=== PATIENT | female | born 1960 | race Caucasian/White ===

== ENCOUNTER 2017-10-31 12:00 | Emergency (ER) | payer MEDICAID, MEDICARE ==
[~2017-10-31] VITALS: Ht 160 cm; Wt 96.6 kg
[~2017-10-31 12:00] MED LIST: BACTRIM DS TAB1 EAC1 ORAL; CLINDAMYCIN HC150 MG ORAL; GENTAK5 ML BOTH EYES; IBUPROFEN400 MG ORAL
--- NOTE | 2017-10-31 12:42 | Emergency Room Report ---
History of Present Illness General Chief Complaint: Lower Extremity Injury Source: Patient Present Illness HPI The patient is a 57-year-old female with a history of seizures and mental disability brought in by services host for leg pain. The patient states that this began 2 days ago for no known reason. The services host denies any injury or fall. She states that the patient does not want to go to her daily activities and is complaining of this pain. Pain is a 5/10 dull ache to both legs. Primarily to the back of the legs Worse with movement. She denies any numbness or tingling. She denies any other symptoms including nausea, vomiting, fever, chills, rash, shortness of breath, chest pain, calf pain Allergies: Coded Allergies: PENICILLINS (Verified Allergy, Unknown, 03/05/13) PHENYTOIN SODIUM (Verified Allergy, Unknown, 03/05/13) PHENYTOIN SODIUM EXTENDED (Verified Allergy, Unknown, 03/05/13) Patient History Past Medical History: see triage record Pertinent Family History: none Last Menstrual Period: na Now: No Reviewed Nursing Documentation: PMH: Agreed, PSxH: Agreed Nursing Documentation-PMH Past Medical History: No History, Except For Hx Asthma: Yes Hx COPD: No - HYPERCHOLESTEROLEMIA Hx Seizures: Yes Review of Systems All Other Systems: negative except mentioned in HPI Physical Exam Vital Signs Date Time Temp Pulse Resp B/P (MAP) Pulse Ox O2 Delivery O2 Flow Rate FiO2 10/31/17 12:04 97.7 91 18 125/89 100 Room Air Sp02 EP Interpretation: reviewed, normal General Appearance: no apparent distress, alert, GCS 15, non-toxic Head: normocephalic, other - helmet on Eyes: bilateral eye normal inspection, bilateral eye PERRL ENT: hearing grossly normal, normal pharynx, no angioedema, normal voice Respiratory: chest non-tender, lungs clear, normal breath sounds, speaking full sentences Cardiovascular #1: regular rate, rhythm, no edema Musculoskeletal: normal inspection, back normal, gait/station normal, normal range of motion, no calf tenderness, tender - bilat posterior thighs Neurologic: alert, responsive, sensory intact Psychiatric: mood/affect normal, no delusions Skin: normal color, no rash, warm/dry, well hydrated Lymphatic: no adenopathy Medical Decision Making PA Attestation Dr. Green is my supervising physician. Patient management was discussed with my supervising physician Diagnostic Impression: Primary Impression: Muscle strain ER Course The patient is a 57 yo F presenting for bilat thigh pain Ddx considered include but not limited to sprain/strain, fracture, contusion, DVT, ulcer, among others PE: Afebrile. NAD Bilat thighs: full AROM of hips and knees intact. No skin changes. No erythema. No ecchymosis. There is tenderness to palpation over the posterior thighs DP pulse 2+ bilat. No calf tenderness The patient is given Motrin and Robaxin and she will be discharged home with the same medications. Herself and the caregiver are given ER precautions. They will follow up with her primary doctor soon as possible Last Vital Signs Date Time Temp Pulse Resp B/P (MAP) Pulse Ox O2 Delivery O2 Flow Rate FiO2 10/31/17 12:04 97.7 91 18 125/89 100 Room Air Status: improved Disposition: ASSISTED LIVING Condition: Improved Scripts Methocarbamol* (ROBAXIN-750*) 750 Mg Tablet 750 MG PO TID, #21 TAB 0 Refills Prov: MAGDALENA JESUS P.AMatthew 10/31/17 Ibuprofen* (MOTRIN*) 600 Mg Tablet 600 MG ORAL Q8H Y for For Pain, #30 TAB 0 Refills Prov: NICKANMAGDALENA P.A. 10/31/17 MAGDALENA JESUS Oct 31, 2017 12:42
[2017-10-31] MEDS ORDERED: IBUPROFEN600 MG ORAL (12:44)
[2017-10-31] MEDS ORDERED: ROBAXIN-750750 MG PO (12:44)
[2017-10-31] MEDS ORDERED: Methocarbamol 750mg tab ORAL ONE (12:45)
[2017-10-31 12:57] VITALS: BP 127/85
== END 2017-10-31 12:57 | disposition home or self-care (01) ==
LOC: EMR 12:15
DX: S76.812A Strain of other specified muscles, fascia and tendons at thigh level, left thigh, initial encounter (principal); S76.811A Strain of other specified muscles, fascia and tendons at thigh level, right thigh, initial encounter; X50.9XXA Other and unspecified overexertion or strenuous movements or postures, initial encounter; Y92.89 Other specified places as the place of occurrence of the external cause; J44.9 Chronic obstructive pulmonary disease, unspecified; Z88.0 Allergy status to penicillin; Z88.8 Allergy status to other drugs, medicaments and biological substances
CPT/HCPCS: 99283

== ENCOUNTER 2018-06-29 20:22 | Emergency (ER) | payer MEDICARE ==
[~2018-06-29] VITALS: Ht 165.1 cm; Wt 81.6 kg
[~2018-06-29 20:22] MED LIST changes: +IBUPROFEN600 MG ORAL; +ROBAXIN-750750 MG PO
[2018-06-29 21:41] LABS: BASOPHILS % (AUTO) 0.3 % (0.0-2.0); EOSINOPHILS % (AUTO) 0.4 % (0.0-3.0); HEMATOCRIT 34.1 % (37.0-47.0); HEMOGLOBIN 11.4 G/DL (12.0-16.0); MEAN CORPUSCULAR VOLUME 100 FL (80-99); MONOCYTES % (AUTO) 6.4 % (1.0-10.0); NEUTROPHILS % (AUTO) 72.9 % (45.0-75.0); PLATELET COUNT 183 K/UL (150-450); RED BLOOD COUNT 3.43 M/UL (4.20-5.40); RED CELL DISTRIBUTION WIDTH 13.3 % (11.6-14.8)
--- NOTE | 2018-06-29 21:45 | Diagnostic Imaging Report ---
EXAM: CT Head Without Intravenous Contrast CLINICAL HISTORY: PAIN TECHNIQUE: Axial computed tomography images of the head/brain without intravenous contrast. CTDI is 0.15 + 70.38 mGy and DLP is 1410 mGy-cm. One or more of the following dose reduction techniques were used: automated exposure control, adjustment of the mA and/or kV according to patient size, use of iterative reconstruction technique. COMPARISON: No relevant prior studies available. FINDINGS: Brain: No hemorrhage. No edema. Involutional changes. Ventricles: No ventriculomegaly. Bones/joints: No acute fracture. Soft tissues: Soft tissue swelling in the forehead. Sinuses: No acute sinusitis. Mastoid air cells: No mastoid effusion. IMPRESSION: Soft tissue swelling in the forehead. No intracranial hemorrhage or skull fracture.
[2018-06-29] MEDS ORDERED: BENZTROPINE ME0.5 MG PO (21:46)
[2018-06-29] MEDS ORDERED: TOPIRAMATE100 MG ORAL (21:46)
[2018-06-29] MEDS ORDERED: ATORVASTATIN CA40 MG ORAL (21:46)
[2018-06-29] MEDS ORDERED: CICLOPIROX 8%34.6 ML TP (21:46)
[2018-06-29] MEDS ORDERED: SYMBICORT 80-10.2 G1 IH (21:46)
[2018-06-29] MEDS ORDERED: MELOXICAM15 MG PO (21:46)
[2018-06-29] MEDS ORDERED: ZYPREXA10 MG ORAL (21:46)
[2018-06-29] MEDS ORDERED: FOLIC ACID1 MG ORAL (21:46)
[2018-06-29] MEDS ORDERED: LAMICTAL150 MG ORAL (21:46)
[2018-06-29] MEDS ORDERED: LATUDA40 MG PO (21:46)
[2018-06-29 21:51] LABS: ANION GAP 9 mmol/L (5-15); BLOOD UREA NITROGEN 18 mg/dL (7-18); CALCIUM 9.3 MG/DL (8.5-10.1); CARBON DIOXIDE 27 MMOL/L (21-32); CHLORIDE 105 MMOL/L (98-107); CREATININE 1.2 MG/DL (0.55-1.30); POTASSIUM 3.8 MMOL/L (3.5-5.1); SODIUM 141 MMOL/L (136-145)
[2018-06-29 21:56] LABS: ALANINE AMINOTRANSFERASE 18 U/L (12-78); ALBUMIN 3.7 G/DL (3.4-5.0); ALBUMIN/GLOBULIN RATIO 0.8 (1.0-2.7); ALKALINE PHOSPHATASE 146 U/L (46-116); ASPARTATE AMINO TRANSFERASE 14 U/L (15-37); BILIRUBIN,TOTAL 0.3 MG/DL (0.2-1.0)
--- NOTE | 2018-06-29 22:20 | Emergency Room Report ---
History of Present Illness General Chief Complaint: Seizure Source: Medical Record, EMS, Caregiver Present Illness HPI The patient is a 58-year-old female brought in from nursing home after a witnessed seizure. Patient had been sitting in her wheelchair. The patient had the removed her helmet. Patient had prior history of seizure disorder. She is normally taking Lamictal as well as Rufinamide. patient was noted to have allergy to penicillins.The patient was noted to have fallen and struck her wallker. The patient noted have increased swelling to her forehead as well as to the left eye with a laceration. Injury occurred approximately one to hours prior to arrival.The history is obtained from patient's caregiver Allergies: Coded Allergies: PENICILLINS (Verified Allergy, Unknown, 03/05/13) PHENYTOIN SODIUM (Verified Allergy, Unknown, 03/05/13) PHENYTOIN SODIUM EXTENDED (Verified Allergy, Unknown, 03/05/13) Patient History Past Medical History: unable to obtain Last Menstrual Period: none Reviewed Nursing Documentation: PMH: Agreed; PSxH: Agreed Nursing Documentation-PMH Hx Asthma: Yes Hx COPD: No - HYPERCHOLESTEROLEMIA Hx Seizures: Yes Review of Systems All Other Systems: limited - by poor historian Physical Exam Vital Signs Date Time Temp Pulse Resp B/P (MAP) Pulse Ox O2 Delivery O2 Flow Rate FiO2 06/29/18 20:39 98.2 92 26 93/54 96 Room Air 98.2 Sp02 EP Interpretation: reviewed, normal General Appearance: normal inspection, alert, no apparent distress, GCS 15 Head: other - frontal soft tissue swelling Eyes: other - bruising to left eyelid, superior lid laceration through tarsal plat ENT: oropharynx normal, no miller signs Neck: trach midline, no bony tend Respiratory: effort normal, no retractions, clear to auscultation, chest symmetrical, palpation of chest normal, speaking in full sentences Cardiovascular: regular rate, rhythm, no JVD Cardiovascular #2: 2+ radial (R), 2+ radial (L), 2+ dorsalis pedis (R), 2+ dorsalis pedis (L) Gastrointestinal: normal inspection, non-tender, non-distended, no rebound/ guarding, normal bowel sounds Genitourinary: normal inspection Musculoskeletal: normal ROM, non-tender, back normal Skin: no rash, normal palpation, other - forehead bruising, left eye soft tissue swelling Lymphatic: normal inspection Neurologic: normal inspection, sensory intact, other - slow speech Psychiatric: mood normal, anxious Medical Decision Making Diagnostic Impression: Primary Impression: Epileptic seizure, generalized Additional Impressions: Eyelid laceration, left Seizure disorder ER Course Patient presented for seizure. Differential diagnosis included fracture, electrolyte abnormality, mass lesion, or intracranial hemorrhage.Because of complexity of patient's case laboratory testing and imaging studies were ordered. The patient was noted to have the not up-to-date tetanus vaccine. The patient was given TDap.Patient noted to have frontal soft tissue swelling. The CT the head read by radiology showed no evidence of acute fracture or intracranial hemorrhage. Soft tissue defect was noted to the left eyePatient was noted to have complex lid laceration. This appears to require plastic surgery repair. The patient was discussed with Dr. Ch at [facility] for higher-level care transfer for further evaluation and treatment. Labs Test 06/29/18 21:20 White Blood Count 8.0 K/UL (4.8-10.8) Red Blood Count 3.43 M/UL (4.20-5.40) Hemoglobin 11.4 G/DL (12.0-16.0) Hematocrit 34.1 % (37.0-47.0) Mean Corpuscular Volume 100 FL (80-99) Mean Corpuscular Hemoglobin 33.2 PG (27.0-31.0) Mean Corpuscular Hemoglobin Concent 33.4 G/DL (32.0-36.0) Red Cell Distribution Width 13.3 % (11.6-14.8) Platelet Count 183 K/UL (150-450) Mean Platelet Volume 4.8 FL (6.5-10.1) Neutrophils (%) (Auto) 72.9 % (45.0-75.0) Lymphocytes (%) (Auto) 20.0 % (20.0-45.0) Monocytes (%) (Auto) 6.4 % (1.0-10.0) Eosinophils (%) (Auto) 0.4 % (0.0-3.0) Basophils (%) (Auto) 0.3 % (0.0-2.0) Prothrombin Time 10.4 SEC (9.30-11.50) Prothromb Time International Ratio 1.0 (0.9-1.1) Activated Partial Thromboplast Time 25 SEC (23-33) Sodium Level 141 MMOL/L (136-145) Potassium Level 3.8 MMOL/L (3.5-5.1) Chloride Level 105 MMOL/L (98-107) Carbon Dioxide Level 27 MMOL/L (21-32) Anion Gap 9 mmol/L (5-15) Blood Urea Nitrogen 18 mg/dL (7-18) Creatinine 1.2 MG/DL (0.55-1.30) Estimat Glomerular Filtration Rate 46.4 mL/min (>60) Glucose Level 103 MG/DL (74-106) Calcium Level 9.3 MG/DL (8.5-10.1) Total Bilirubin 0.3 MG/DL (0.2-1.0) Aspartate Amino Transf (AST/SGOT) 14 U/L (15-37) Alanine Aminotransferase (ALT/SGPT) 18 U/L (12-78) Alkaline Phosphatase 146 U/L (46-116) Total Protein 8.1 G/DL (6.4-8.2) Albumin 3.7 G/DL (3.4-5.0) Globulin 4.4 g/dL Albumin/Globulin Ratio 0.8 (1.0-2.7) Last Vital Signs Date Time Temp Pulse Resp B/P (MAP) Pulse Ox O2 Delivery O2 Flow Rate FiO2 06/29/18 20:47 92 26 Room Air 06/29/18 20:39 98.2 93/54 96 98.2 Status: unchanged Disposition: XFER SHT-TRM HOSP Condition: Stable Referrals: NON PHYSICIAN (PCP) Ravi Green MD Jun 29, 2018 22:20
[2018-06-29] MEDS: Tetanus/Diptheria/Pertussis Vaccine 0.5ml Syr IM ONE ×2 (22:30→22:38)
[2018-06-29 23:21] VITALS: BP 112/88
[2018-06-29 23:35] VITALS: BP 112/88
== END 2018-06-30 00:22 | disposition short-term general hospital (02) ==
LOC: EMR 20:44
DX: G40.409 Other generalized epilepsy and epileptic syndromes, not intractable, without status epilepticus (principal); S01.112A Laceration without foreign body of left eyelid and periocular area, initial encounter; W19.XXXA Unspecified fall, initial encounter; Y92.009 Unspecified place in unspecified non-institutional (private) residence as the place of occurrence of the external cause; Z23 Encounter for immunization; Z79.899 Other long term (current) drug therapy; Z88.0 Allergy status to penicillin; Z88.8 Allergy status to other drugs, medicaments and biological substances; J44.9 Chronic obstructive pulmonary disease, unspecified
CPT/HCPCS: 36415; 70450; 80053; 85025; 85610; 85730; 90471; 90715; 99284